=== PATIENT | male | born 1990 | race Caucasian/White ===

== ENCOUNTER 2018-07-15 01:05 | Emergency (ER) | payer SELFPAY ==
[~2018-07-15] VITALS: Ht 188 cm; Wt 102.1 kg
[2018-07-15] MEDS ORDERED: HYDROCODONE/APAP 5/325MG 1 EACH TABLET PO ONE (02:00)
[2018-07-15] MEDS ORDERED: HYDROCODONE/APAP 5/325MG 1 EACH TABLET ONE (02:06)
[2018-07-15 02:36] VITALS: BP 133/76
== END 2018-07-15 03:05 | disposition home or self-care (01) ==
LOC: ER 01:10
DX: S63.592A Other specified sprain of left wrist, initial encounter (principal); M62.838 Other muscle spasm; M54.5 Low back pain; V49.49XA Driver injured in collision with other motor vehicles in traffic accident, initial encounter; Y93.89 Activity, other specified; Y92.413 State road as the place of occurrence of the external cause; Y99.8 Other external cause status
CPT/HCPCS: 72040-TC; 72100-TC; 73110